=== PATIENT | male | born 2000 | race Two or more races ===

== ENCOUNTER 2024-02-05 17:36 | Emergency (ER) | payer BC, OTHER ==
[~2024-02-05] VITALS: Ht 177.8 cm; Wt 75.2 kg
[2024-02-05 21:00] VITALS: BP 121/74; PULSE 73; RESP 18; TEMP 98.2; O2SAT 100
[2024-02-05] MEDS ORDERED: MUPI2OIN2 EX (21:45)
[2024-02-05] MEDS ORDERED: CEPH500C PO (21:45)
[2024-02-05] MEDS ORDERED: IBUP1TAB5 PO (21:45)
[2024-02-05] MEDS: TETANUS-DIPTH-ACEL PERTUSSIS 0.5ML SYR Tdap IM ONE (22:07)
[2024-02-05] MEDS: HYDROcodone-ACET 5/325MG TAB PO ONE (22:09)
[2024-02-05] MEDS: LIDOCAINE 1% HCL (LOCAL ANESTH.) INJ 20ML MDV IJ ONE (22:11)
[2024-02-05] MEDS: MUPIROCIN 2% OINT 15gm or 22gm TOP ONE (22:12)
== END 2024-02-05 22:05 | disposition home or self-care (01) ==
LOC: ER 17:36
DX: S61.215A Laceration without foreign body of left ring finger without damage to nail, initial encounter (principal); W22.8XXA Striking against or struck by other objects, initial encounter; Y93.89 Activity, other specified; Y92.89 Other specified places as the place of occurrence of the external cause; Y99.0 Civilian activity done for income or pay
CPT/HCPCS: 12002; 73130; 90471; 90715